=== PATIENT | male | born 1995 | race Caucasian/White ===

== ENCOUNTER 2018-04-30 01:20 | Emergency (ER) | payer SELFPAY ==
[2018-04-30 01:21] VITALS: BP 173/93; PULSE 86; RESP 15; TEMP 36.4; O2SAT 99; BMI 35.0
[2018-04-30 01:58] LABS: Bacteria 0 SEEN /hpf (None Seen); Mucous, Urine 0 SEEN /hpf (<or=2+); White Blood Cells 0 SEEN /hpf (0-5)
[2018-04-30 02:02] LABS: Color, Urine Yellow (Yellow); Glucose, Dipstick Normal (Normal); Ketone-Dipstick Negative (Negative); Leukocyte Esterase-Dipstick Negative /ul (Negative); Nitrite-Dipstick Negative (Negative); Occult Blood-Urine 250 /ul (Negative); Protein-Dipstick 15 mg/dl (Negative); Specific Gravity, Urine 1.015 (1.002-1.030); Urine Bilirubin Dipstick Negative (Negative); Urine Clarity Clear (Clear); Urine Urobilinogen Normal (Normal)
[2018-04-30 02:08] LABS: Red Blood Cells-Urine 25-50 SEEN /hpf (0-5); Squamous Epithelial Cells - UA 0-5 SEEN /hpf (0-5)
[2018-04-30] MEDS: Morphine 4 MG/ML Syringe IV (02:13)
[2018-04-30] MEDS: Ondansetron 4 MG/2 ML Vial IV (02:13)
[2018-04-30 03:44] VITALS: BP 139/71; PULSE 78; RESP 15; O2SAT 98
--- NOTE | 2018-04-30 04:06 | ED.VISSUMM ---
- ER Visit Summary Date of Service: 04/30/18 Chief Complaint: Left flank pain History of Present Illness: The patient is a 22 M presenting with left flank pain. Patient states this started on Tuesday. He noted blood in his urine at that time. He states the pain started to subside. He then had sudden onset of pain in the left flank again last night. He tried Advil at home. He has a family history of kidney stones. No other complaints. Physical Examination: Vitals are stable. Patient is afebrile. Alert no acute distress. HEENT exam is unremarkable. Neck is supple. Lungs are clear and equal bilaterally. Heart is regular rate and rhythm. Abdomen is soft nontender nondistended. No guarding or rebound Back: Left CVA tenderness Extremities are unremarkable. Skin is warm and dry. Remainder of exam is unremarkable. Emergency Department Course and Treatment: Patient was given morphine, Zofran IV. Urinalysis shows 0 white cells, 25-[address] abdomen pelvis shows 4 mm distal left ureteral calculus resulting in mild left-sided hydroureter nephrosis. Additional nonobstructing bilateral renal calculi measuring up to 3 mm on the right and 2 mm on the left. After pain medication, patient is resting comfortably. He is given a prescription for [place]. He is advised to follow-up with Dr. Norris. Advised return to ED for worsening complaints. Disposition: Discharge home Impression: Urolithiasis This note was generated with [employer] dictation software. It may contain incorrect words, spelling, and punctuation that were not noted in review of the chart prior to signing ED Disposition - Plan for ED Patient: Chief Complaint: Flank Pain Referrals: Care Physician,No Primary [Primary Care Provider] -
--- NOTE | 2018-04-30 04:10 | ED.DEP ---
ED Disposition - Plan for ED Patient: Chief Complaint: Flank Pain Instructions: ED Stone Renal W Colic Prescriptions: Hydrocodone Bitart/Apap 5-325 [[place] 5MG-325MG] 1 tablet PO Q6H PRN PRN 3 Days #8 tablet PRN Reason: Pain Referrals: Care Physician,No Primary [Primary Care Provider] - Charles Norris MD [STAFF PHYSICIAN] -
[2018-04-30 04:15] VITALS: BP 153/86; PULSE 66; RESP 18; O2SAT 96
== END 2018-04-30 04:17 | disposition home or self-care (01) ==
PROVIDERS: Emergency Provider Emergency Medicine
DX: N13.2 Hydronephrosis with renal and ureteral calculous obstruction (principal); Z72.0 Tobacco use
CPT/HCPCS: 74176; 81001; 96374; 96375; 99283; A4216; J2405